=== PATIENT | female | born 1950 | race Caucasian/White ===

== ENCOUNTER 2023-12-12 10:06 | Day surgery (SDC) | payer MEDICARE, OTHER, SELFPAY ==
[2023-11-29 11:01] VITALS: BMI 25.6
[2023-12-12] VITALS (15 sets, daily range): BP systolic 114–184; BP diastolic 62–94
[2023-12-12] MEDS: NSS 500 IV (10:23)
[2023-12-12] MEDS: TYLENOL 1000 MG PO (10:51)
[2023-12-12] MEDS: TRANSDERM-SCOP 1 PATCH TRANSDERM (11:15)
[2023-12-12 13:02] LABS: ACT-LR - POC 327 Seconds (116-155)
--- NOTE | 2023-12-12 13:57 | ITS.CL.ABL ---
[employer] - Ablation
Ablation
Procedure Report:
ELECTROPHYSIOLOGIC STUDY AND POSSIBLE ABLATION
DATE: December 12, 2023
Primary Care Provider: Dr. Lázaro Villalta
INDICATION:
Symptomatic Atrial Fibrillation.
Paroxysmal
HISTORY: See H and P.
Symptomatic AF, poorly controlled with attempted medical therapy.
Records from [facility] show that she underwent her second ablation for atrial fibrillation on November 23, 2022 (first ablation was at [facility] January 2022).� It is noted that she had left atrial atrial flutter
induced and this was felt to represent clockwise and counterclockwise mitral annular flutter.� It is noted that she underwent cavotricuspid isthmus ablation.� Left atrial mapping found reconnection of the left pulmonary veins but durably isolated
right pulmonary veins.� Programmed electrical stimulation induced mitral annular flutter confirmed by activation and entrainment mapping.� Linear ablation strategy anteriorly was used from the right pulmonary vein down to the mitral valve annulus
through an area of slow conduction and ultimately with ablation it is noted that atrial flutter terminated and sinus rhythm was restored.� Reconnection at the anterior taylor of the left sided pulmonary veins was also targeted for ablation.
She has recurred with symptomatic atrial fibrillation despite continued antiarrhythmic drug therapy with flecainide and metoprolol.
HAS-BLED: 1
Age
CHADSVASc: 2
Age
F Gender
PRESENTING RHYTHM: SR
HISTORY: See H and P.
Symptomatic AF, poorly controlled with attempted medical therapy.
ANTIARRHYTHMIC DRUG: Flecainide and metoprolol
ANTICOAGULATION: Eliquis 5 mg twice daily
'TIME-OUT': called and confirmed.
SEDATION/ANESTHESIA: provided via the anesthesia department using general anesthesia.
PROCEDURE:
Ultrasound Guidance performed by mo was utilized for femoral venous Vascular Access b/l.
A decapolar CS catheter was placed within the CS for mapping and pacing.
The intracardiac ultrasound catheter was positioned in the RA for continuous intracardiac ultrasound imaging.
Heparin bolus and infusion to target ACT at 300 -350 seconds was administered. Transseptal puncture was performed. This entailed advancing a sheath with dilator into the superior vena cava and withdrawing both (monitoring intracardiac ultrasound,
fluoroscopy and tip pressure) with the tip oriented toward the atrial septum. The fossa ovalis was engaged (indicated by sudden displacement of the sheath tip as well as tenting of the fossa seen on intracardiac ultrasound).
The [employer] transseptal system was used. Left atrial catheter position was confirmed by echocardiographic imaging and fluoroscopy followed by RF delivery using the [employer] system resulting in successful LA access with pressure monitoring
demonstrating LA pressure waveforms (LA mean pressure 14 mm Hg). The sheath was advanced over the dilator and positioned in the left atrium.
The Lux Grid multipolar mapping catheter was initially positioned through the transseptal sheath for high density mapping.
Geometry and voltage mapping was performed using the [email or web address] multipolar grid catheter. Navex was utilized for three-dimensional electroanatomical mapping.
A 3-D map was created using Navex. A 3-D reconstructed CT image was compared to the 3-D Navex map to assist in anatomic evaluation, mapping and ablation.
High density mapping demonstrates reconnection at the left inferior pulmonary vein towards its posterior inferior quadrant and in the right inferior pulmonary vein towards its septal quadrant.
The [employer] Discovery PFA catheter and system was used for cardiac ablation. Catheter positioning was guided and confirmed using both I.C.E. and fluoroscopy.
Ablation strategy included reisolation of the pulmonary veins as well as additional ablation lesion set which consisted of extending the ablated territory to a wide area circumferential ablation around each of the pulmonary vein sets (LSPV, LIPV,
RSPV, RIPV) and also isolating the posterior wall of the left atrium.
Remapping with the Lux multipolar grid catheter found that all PVPs were eliminated at each vein demonstrating entrance block. Also pacing from the multipolar mapping catheter around the the circumference of the ostia was performed at 10 ma and
2.0 msec output to assess for exit block. This demonstrated electrical isolation at each of the pulmonary vein ostia (LSPV, LIPV, RSPV, RIPV). There is also entrance and exit block at the LA posterior wall.
Programmed electrostimulation failed to induce any sustained arrhythmias.
I.C.E. :
Pre-Ablation Post-Ablation
LVEF: 55 % 55 %
WMA: none none
Pericardial effusion: small mostly post small mostly post (unchanged)
COMPLICATIONS:
None
SUMMARY:
- Mapping and ablation to isolate the PVs
- Additional AF ablation set after PVI.
- 3-D Electroanatomical Mapping
- Intracardiac Ultrasound
RECOMMENDATIONS:
- Observe in monitored bed.
- Maintain oral anticoagulation.
-Discontinue flecainide. Maintain current dose of metoprolol and I will reassess at office visit in 3 months.
- Office visit with me or EP care professional in 3 months.
Copy to:
Dr. Lzáaro Villalta
[2023-12-12 15:16] LABS: ACT-LR - POC > 397 Seconds (116-155)
--- NOTE | 2023-12-12 17:03 | W.PN.UPDATE ---
Update Note
Progress Note Update
Pt seen post PFA. Right groin with FOE sutures, no ht/bleeding, non tender. Urinating without difficulty. Post EKG NSR 60s, no acute changes. Resume Eliquis tonight at usual time. Discontinue flecainide at this time. Followup with Dr. Austin as
scheduled. Home later today if groin site/tele remain stable.
[2023-12-12] MEDS: ANESTHETIC LOZENGE 1 LOZENGE PO (17:07)
== END 2023-12-12 18:55 | disposition home or self-care (01) ==
LOC: CATH 10:06
PROVIDERS: ATTENDING PHYSICIAN Internal Medicine Cardiovascular Disease; FAMILY PHYSICIAN Family Medicine
DX: I48.91 Unspecified atrial fibrillation (principal); I48.92 Unspecified atrial flutter; Z79.01 Long term (current) use of anticoagulants; Z79.899 Other long term (current) drug therapy
CPT/HCPCS: C1732; C1894; C1730; C1892; 85347; 86900; 86901; 93005; 93656; 93657; C1733; C1766